=== PATIENT | female | born 1985 | race Two or more races ===

== ENCOUNTER → 2017-04-29 | Outpatient (CLI) | payer OTHER | END | disposition home or self-care (01) | LOC: LAB 09:43 | PROVIDERS: ATTEND Registered Nurse | DX: O99.810 Abnormal glucose complicating pregnancy (principal); Z3A.00 Weeks of gestation of pregnancy not specified | CPT/HCPCS: 36415; 82951 ==

== ENCOUNTER 2017-08-09 00:58 | Inpatient (IN) | payer OTHER ==
[~2017-08-09] VITALS: Ht 154.9 cm; Wt 74.5 kg
[2017-08-09] MEDS: LACTATED RINGERS 1,000 ML IV SCH ×2 (01:05→01:40)
[2017-08-09] MEDS ORDERED: OXYTOCIN 30U/ 0.9% NaCL 500ML 500 ML IV ONE (01:05)
[2017-08-09] MEDS ORDERED: D5%-LACTATED RINGERS 1,000 ML IV SCH (01:05)
[2017-08-09] MEDS ORDERED: OXYTOCIN 30U/ 0.9% NaCL 500ML 500 ML ONE (01:12)
[2017-08-09] MEDS ORDERED: MISOPROSTOL 200 MCG TABLET ONE (01:12)
[2017-08-09] MEDS ORDERED: NEWBORN KIT ONE (01:12)
[2017-08-09] MEDS ORDERED: FENTANYL PF 100 MCG/2ML ONE (01:13)
[2017-08-09 01:27] LABS: HEMATOCRIT 38.3 % (34.6-47.8); HEMOGLOBIN 13.1 g/dL (11.7-16.4)
[2017-08-09] MEDS ORDERED: ALUMINUM/MAG/SIMETHICONE 30 ML UDC PO PRN (01:30)
[2017-08-09] MEDS ORDERED: PLEASE ENTER ALLERGIES MC SCH ×2 (01:30)
[2017-08-09] MEDS ORDERED: ONDANSETRON 2MG/ML, 2ML IVPush PRN (01:30)
[2017-08-09] MEDS ORDERED: FENTANYL PF 100 MCG/2ML IVPush PRN (01:30)
[2017-08-09] MEDS ORDERED: CALCIUM CARBONATE 500 MG TAB.CHEW PO PRN ×2 (01:30→02:00)
[2017-08-09] MEDS ORDERED: PLEASE ENTER HEIGHT AND WEIGHT MC SCH (01:30)
[2017-08-09] MEDS ORDERED: SODIUM CITRATE/CITRIC ACID 30 ML UDC PO PRN (01:30)
[2017-08-09] MEDS ORDERED: METOCLOPRAMIDE 5 MG/ML, 2ML IVPush PRN (01:30)
[2017-08-09] MEDS ORDERED: TERBUTALINE 1 MG/ML, 1ML IVPush PRN ×2 (01:30)
[2017-08-09] MEDS ORDERED: FENTANYL PF 100 MCG/2ML IV PRN (01:30)
[2017-08-09] MEDS: OXYTOCIN 30U/ 0.9% NaCL 500ML 500 ML IV SCH ×3 (01:55→21:55)
[2017-08-09] MEDS ORDERED: ONDANSETRON 2MG/ML, 2ML IV PRN (02:00)
[2017-08-09] MEDS ORDERED: CARBOPROST TROMETHAMINE 250 MCG/ML, 1ML IM PRN (02:00)
[2017-08-09] MEDS ORDERED: MISOPROSTOL 200 MCG TABLET PR PRN (02:00)
[2017-08-09] MEDS ORDERED: METHYLERGONOVINE 0.2 MG/ML IM PRN (02:00)
[2017-08-09] MEDS ORDERED: DOCUSATE 100 MG CAPSULE PO PRN (02:00)
[2017-08-09] MEDS ORDERED: IBUPROFEN 600 MG TABLET ONE (02:09)
[2017-08-09] MEDS ORDERED: HYDROcodone/APAP 5/325 TABLET ONE (02:09)
[2017-08-09] MEDS: HYDROcodone/APAP 5/325 TABLET PO PRN ×4 (02:10→23:01)
[2017-08-09] MEDS: IBUPROFEN 600 MG TABLET PO PRN ×4 (02:10→23:01)
[2017-08-09 04:15] VITALS: BP 97/60
[2017-08-09 08:00] VITALS: BP 96/63
[2017-08-09 09:27] LABS: HEMATOCRIT 35.9 % (34.6-47.8); HEMOGLOBIN 12.2 g/dL (11.7-16.4)
[2017-08-09] MEDS: PRENATAL VIT/IRON/FA 1 EACH TABLET PO SCH (10:09)
[2017-08-09 12:00] VITALS: BP 99/63
[2017-08-09 16:00] VITALS: BP 117/80
[2017-08-09 19:45] VITALS: BP 105/67
[2017-08-09 23:15] VITALS: BP 108/70
[2017-08-10 07:45] VITALS: BP 104/67
[2017-08-10] MEDS: PRENATAL VIT/IRON/FA 1 EACH TABLET PO SCH (07:53)
[2017-08-10] MEDS: HYDROcodone/APAP 5/325 TABLET PO PRN (07:53)
[2017-08-10] MEDS: IBUPROFEN 600 MG TABLET PO PRN (07:53)
[2017-08-10] MEDS ORDERED: IBUP-1222 PO (08:30)
[2017-08-10] MEDS ORDERED: DOCU-131 PO (08:30)
[2017-08-10] MEDS ORDERED: HYDR-3240 PO (08:31)
[2017-08-10] MEDS ORDERED: DIPH,PERTUSS(ACELL),TET VAC/PF NC IM-VACC ONE ×2 (10:09→10:30)
== END 2017-08-10 11:26 | disposition home or self-care (01) | DRG 775 ==
LOC: LDOP 00:58 → LDIP 01:14 → 2NW 03:43
PROVIDERS: ATTEND Student in an Organized Health Care Education/Training Program
PROC: 10E0XZZ Delivery of Products of Conception, External Approach (ICD-10-PCS; principal; 2017-08-09)
DX: O80 Encounter for full-term uncomplicated delivery (principal); Z37.0 Single live birth; Z3A.41 41 weeks gestation of pregnancy
CPT/HCPCS: 36415; 85025; 86850; 86900; 90715; J3010; J2590; J7120